=== PATIENT | male | born 1970 | race African-American/Black ===

== ENCOUNTER 2018-12-17 07:59 | Emergency (ER) | payer SELFPAY ==
[2018-12-17] MEDS ORDERED: RINGERS SOLUTION,LACTATED 1,000 ML IV ONE (08:30)
[2018-12-17] MEDS ORDERED: ONDANSETRON HCL INJ/PF 4 MG/2 ML SDV IV ONE (08:30)
[2018-12-17] MEDS ORDERED: PREDNISONE 20 MG TABLET PO ONE (08:55)
[2018-12-17] MEDS ORDERED: IPRATROPIUM/ALBUTEROL 0.5-2.5 MG/3 ML AMPUL NEB ONE ×2 (08:55→09:42)
--- NOTE | 2018-12-17 09:16 | RADIOLOGY REPORT (SQ) ---
EXAM DESCRIPTION: CHEST 2 VIEWS COMPLETED DATE/TIME: 12/17/2018 9:01 am REASON FOR STUDY: cough COMPARISON: None. TECHNIQUE: Frontal and lateral radiographic views of the chest acquired. NUMBER OF VIEWS: Two view. LIMITATIONS: None. FINDINGS: LUNGS AND PLEURA: No opacities, masses or pneumothorax. No pleural effusion. MEDIASTINUM AND HILAR STRUCTURES: No masses or contour abnormalities. HEART AND VASCULAR STRUCTURES: Heart normal size. No evidence for failure. BONES: No acute findings. HARDWARE: None in the chest. OTHER: No other significant finding. IMPRESSION: NO SIGNIFICANT RADIOGRAPHIC FINDING IN THE CHEST. TECHNICAL DOCUMENTATION: JOB ID: [id number] [employer]- All Rights Reserved Reading location - IP/workstation name: [email or web address]
[2018-12-17 10:10] LABS: HEMATOCRIT 47.1 % (37.9-51.0); HEMOGLOBIN 15.6 g/dL (13.5-17.0); MEAN CORPUSCULAR HEMOGLOBIN 29.2 pg (27.0-33.4); MEAN CORPUSCULAR HGB CONC 33.2 g/dL (32.0-36.0); MEAN CORPUSCULAR VOLUME 88 fl (80-97); PLATELET COUNT 271 10^3/uL (150-450); RED BLOOD COUNT 5.35 10^6/uL (4.35-5.55); RED CELL DISTRIBUTION WIDTH 14.2 % (11.5-14.0); WHITE BLOOD COUNT 8.5 10^3/uL (4.0-10.5)
[2018-12-17 10:18] LABS: ALANINE AMINOTRANSFERASE 13 U/L (21-72); ALBUMIN 4.9 g/dL (3.5-5.0); ALKALINE PHOSPHATASE 79 U/L (38-126); ANION GAP 13 (5-19); ASPARTATE AMINO TRANSFERASE 21 U/L (17-59); BILIRUBIN,DIRECT 0.2 mg/dL (0.0-0.4); BILIRUBIN,TOTAL 0.5 mg/dL (0.2-1.3); BLOOD UREA NITROGEN 22 mg/dL (7-20); CALCIUM 9.7 mg/dL (8.4-10.2); CARBON DIOXIDE 30 mmol/L (22-30); CHLORIDE 101 mmol/L (98-107); GLUCOSE 96 mg/dL (75-110); LIPASE 92.7 U/L (23-300); POTASSIUM 4.7 mmol/L (3.6-5.0); TOTAL PROTEIN 8.3 g/dL (6.3-8.2)
[2018-12-17] MEDS ORDERED: AMLODIPINE BESYLATE 2.5 MG TABLET PO ONE (10:34)
[2018-12-17 10:36] LABS: ABSOLUTE LYMPHOCYTES# (MANUAL) 0.2 10^3/uL (0.5-4.7); ABSOLUTE MONOCYTES # (MANUAL) 0.4 10^3/uL (0.1-1.4); ABSOLUTE NEUTROPHILS# (MANUAL) 7.7 10^3/uL (1.7-8.2); BASOPHILS % (MANUAL) 0 % (0-2); EOSINOPHILS % (MANUAL) 2 % (0-6); LYMPHOCYTES % (MANUAL) 2 % (13-45); MONOCYTES % (MANUAL) 5 % (3-13); SEGMENTED NEUTROPHILS % (MAN) 91 % (42-78); TOTAL CELLS COUNTED 100
[2018-12-17 10:37] LABS: ANISOCYTOSIS SLIGHT; PLATELET COMMENT ADEQUATE; TOXIC GRANULATION SLIGHT
[2018-12-17] MEDS ORDERED: ALBUTEROL SULFATE 0.083% NEB 2.5 MG/3 ML AMPUL NEB ONE (11:39)
--- NOTE | 2018-12-17 13:05 | ER Document Report ---
ED General - General Chief Complaint: Vomiting Stated Complaint: VOMITING,COUGH Time Seen by Provider: 12/17/18 08:29 Notes: Patient is a 39-year-old male presents to the emergency department for generalized vomiting x2 nonbloody nonbilious and diarrhea x1 nonbloody. Patient's denying fever. Patient states he ate a roast beef and a milkshake last night. States he is unsure if he has food poisoning. Patient states he also feels as though he had an extended cough for the last couple weeks. States he does have a history of asthma but has not had his albuterol inhaler due to him being uninsured.patient is denying that the vomiting episodes were posttussive in nature. Patient states initially he was having some abdominal pain but after he vomited states he felt better. Patient is currently denying any abdominal pain at this time. Past medical history: Asthma Medications: Currently none Allergies: Seafood TRAVEL OUTSIDE OF THE [place] IN LAST 30 DAYS: No - Related Data Allergies/Adverse Reactions: shellfish derived Adverse Reaction (Mild, Verified 12/17/18 08:31) VOMITING Past Medical History - General Information source: Patient - Social History Smoking Status: Former Smoker Frequency of alcohol use: None Drug Abuse: None Family History: Reviewed & Not Pertinent Patient has suicidal ideation: No Patient has homicidal ideation: No Pulmonary Medical History: Reports: Hx Asthma Renal/ Medical History: Denies: Hx Peritoneal Dialysis Review of Systems - Review of Systems Constitutional: denies: Fever EENT: No symptoms reported Cardiovascular: No symptoms reported Respiratory: See HPI Gastrointestinal: See HPI Genitourinary: No symptoms reported Male Genitourinary: No symptoms reported Musculoskeletal: No symptoms reported Skin: No symptoms reported Hematologic/Lymphatic: No symptoms reported Neurological/Psychological: No symptoms reported Physical Exam - Vital signs Vitals: Temp Pulse Resp BP Pulse Ox 99 F 96 16 169/117 H 96 12/17/18 08:03 12/17/18 08:03 12/17/18 08:03 12/17/18 08:03 12/17/18 08:03 - Notes Notes: GENERAL: Alert, interacts well. No acute distress. HEAD: Normocephalic, atraumatic. EYES: Pupils equal, round, and reactive to light. Extraocular movements intact. ENT: Oral mucosa moist, tongue midline. Nares patent, TM's intact, nonerythematous, nonbulging bilaterally. Pharynx within normal limits no palatal petechiae noted. NECK: Full range of motion. Supple. Trachea midline. LUNGS: Inspiratory and expiratory wheezes to auscultation bilaterally, all contreras. No respiratory distress. HEART: Regular rate and rhythm. No murmur ABDOMEN: Soft, non-tender. Non-distended. Bowel sounds present in all 4 quadrants. No McBurney's point tenderness, no Macedo sign noted. EXTREMITIES: Moves all 4 extremities spontaneously. No edema, normal radial and dorsalis pedis pulses bilaterally. No cyanosis. BACK: no cervical, thoracic, lumbar midline tenderness. No saddle anesthesia, normal distal neurovascular exam. NEUROLOGICAL: Alert and oriented x3. Normal speech. cranial nerves II through XII grossly intact. PSYCH: Normal affect, normal mood. SKIN: Warm, dry, normal turgor. No rashes or lesions noted. Course - Re-evaluation Re-evalutation: Patient's labs show a BUN of 22, creatinine 1.54, GFR 59. Patient was rehydrated with fluids in the emergency department. Patient's labs show no signs of leukocytosis, no signs of anemia, chest x-ray negative for pneumonia, pneumothorax, rib fracture. Patient has continued to be hypertensive in the emergency department with a diastolic in the 1 teens. Discussed this case my at tending Dr. Roman who suggest starting the patient on Norvasc. Discussed with the patient close return precautions and need to follow-up with a primary care provider, [facility] will be provided. Patient's lung sounds are now clear and equal in all contreras after DuoNeb and albuterol treatments. Discussed with patient use of albuterol inhaler, steroids, again close follow-up with [facility]. Patient stable for discharge. 12/17/18 13:05 Patient is able to p.o. after Zofran administration, no continued vomiting. Continues with abdominal pain. - Vital Signs Vital signs: Temp Pulse Resp BP Pulse Ox 99.0 F 106 H 22 H 162/108 H 97 12/17/18 08:06 12/17/18 11:55 12/17/18 11:55 12/17/18 11:55 12/17/18 11:55 - Laboratory Result Diagrams: 12/17/18 09:35 12/17/18 09:35 Laboratory results interpreted by me: 12/17/18 12/17/18 09:35 09:35 RDW 14.2 H Seg Neuts % (Manual) 91 H Lymphocytes % (Manual) 2 L Abs Lymphs (Manual) 0.2 L BUN 22 H Creatinine 1.54 H Est GFR ( Amer) 59 L Est GFR (Non-Af Amer) 48 L ALT 13 L Total Protein 8.3 H Discharge - Discharge Clinical Impression: Acute bronchospasm, Vomiting and diarrhea Hypertension Qualifiers: Hypertension type: unspecified Qualified Code(s): I10 - Essential (primary) hypertension Condition: Stable Disposition: HOME, SELF-CARE Instructions: Asthma ([facility]), Diarrhea, Nonspecific ([facility]), High Blood Pressure ([facility]), Vomiting ([facility]) Additional Instructions: As we discussed you have been seen and treated in the emergency department for your nausea, vomiting, diarrhea, asthma exacerbation. Please make sure you are taking nausea medication as prescribed. Please also make sure you take your albuterol inhaler every 4 hours as needed for respiratory distress. Please make sure you take your prednisone as prescribed as this will help your breathing. Please also make sure you take your initial high blood pressure medications I provided. It is very important that you follow-up at [facility] or [facility] for continued care of your hypertension and asthma. Phone numbers and addresses will be provided within this packet. Please return to the emergency room for any other concerns. Prescriptions: Albuterol Sulfate [Proair HFA Inhalation Aerosol 8.5 gm MDI] 1 puff IH Q4 PRN #1 mdi PRN Reason: Amlodipine Besylate [Norvasc 2.5 mg Tablet] 2.5 mg PO DAILY #30 tablet Ondansetron HCl [Zofran 8 mg Tablet] 8 mg PO Q6 #10 tablet Prednisone [Deltasone 20 mg Tablet] 3 tab PO DAILY 5 Days tablet Referrals: [facility] [Provider Group] - Follow up as needed [facility] [Provider Group] - Follow up as needed
[2018-12-17 13:32] VITALS: BP 165/106
== END 2018-12-17 13:31 | disposition home or self-care (01) ==
LOC: ER 07:59
DX: J98.01 Acute bronchospasm (principal); R11.10 Vomiting, unspecified; R19.7 Diarrhea, unspecified; I10 Essential (primary) hypertension; Z91.013 Allergy to seafood
CPT/HCPCS: 94640 ×2; 99283; 96374; 96375; 36415; 83690; 85025; 80053; 71046; J7512; J2405; J7120; J7620

== ENCOUNTER 2019-03-15 11:14 | Emergency (ER) | payer SELFPAY ==
[2019-03-15] MEDS ORDERED: DEXAMETHASONE SOD PHOS INJ 10 MG/1 ML VIAL IV ONE (11:35)
[2019-03-15] MEDS ORDERED: IPRATROPIUM/ALBUTEROL 0.5-2.5 MG/3 ML AMPUL NEB ONE (11:35)
--- NOTE | 2019-03-15 11:39 | ER Document Report ---
ED Medical Screen (RME) - General Chief Complaint: Breathing Difficulty Stated Complaint: BREATHING PROBLEMS Time Seen by Provider: 03/15/19 11:35 Mode of Arrival: Ambulatory Information source: Patient Notes: 48-year-old male presented to ED for complaint of shortness of breath difficulty breathing. He states his inhaler ran out. He states he has asthma and usually takes a purple inhaler and albuterol. He states the last time he used cocaine was on Tuesday he does smoke 2 cigarettes a day and he states the cocaine should be out of his body so he is not worried about that. He is alert oriented respirations regular and unlabored speaking in full sentences walks with even steady gait. He states he is very tired and very weak. He states he went to his doctor and they sent him over to the emergency room. Patient does have expiratory wheezes at this time. I have greeted and performed a rapid initial assessment of this patient. A comprehensive ED assessment and evaluation of the patient, analysis of test results and completion of medical decision making process will be conducted by an additional ED providers. Dictation of this chart was performed using voice recognition software; therefore, there may be some unintended grammatical errors. TRAVEL OUTSIDE OF THE [place] IN LAST 30 DAYS: No - Related Data Allergies/Adverse Reactions: shellfish derived Adverse Reaction (Mild, Verified 03/15/19 11:15) VOMITING Past Medical History - Social History Drug Abuse: Cocaine Pulmonary Medical History: Reports: Hx Asthma Renal/ Medical History: Denies: Hx Peritoneal Dialysis Physical Exam - Vital signs Vitals: Temp Pulse Resp BP Pulse Ox 98.1 F 92 19 157/104 H 96 03/15/19 11:19 03/15/19 11:19 03/15/19 11:19 03/15/19 11:19 03/15/19 11:19 Course - Vital Signs Vital signs: Temp Pulse Resp BP Pulse Ox 98.1 F 92 19 157/104 H 96 03/15/19 11:19 03/15/19 11:19 03/15/19 11:19 03/15/19 11:19 03/15/19 11:19
--- NOTE | 2019-03-15 12:02 | RADIOLOGY REPORT (SQ) ---
EXAM DESCRIPTION: CHEST 2 VIEWS COMPLETED DATE/TIME: 03/15/2019 11:54 am REASON FOR STUDY: cough short of breath COMPARISON: 12/19/2018 EXAM PARAMETERS: NUMBER OF VIEWS: two views TECHNIQUE: Digital Frontal and Lateral radiographic views of the chest acquired. RADIATION DOSE: NA LIMITATIONS: none FINDINGS: LUNGS AND PLEURA: No opacities, masses or pneumothorax. No pleural effusion. MEDIASTINUM AND HILAR STRUCTURES: No masses or contour abnormalities. HEART AND VASCULAR STRUCTURES: Heart normal size. No evidence for failure. BONES: No acute findings. HARDWARE: None in the chest. OTHER: No other significant finding. IMPRESSION: NO ACUTE RADIOGRAPHIC FINDING IN THE CHEST. TECHNICAL DOCUMENTATION: JOB ID: [id number] [employer]- All Rights Reserved Reading location - IP/workstation name: [email or web address]
[2019-03-15] MEDS: ALBUTEROL SULFATE 0.083% NEB 2.5 MG/3 ML AMPUL NEB SCH ×2 (12:10→12:47)
[2019-03-15 12:23] LABS: APPEARANCE,URINE CLEAR; BILIRUBIN,URINE NEGATIVE (NEGATIVE); COLOR,URINE STRAW; GLUCOSE, URINE NEGATIVE (NEGATIVE); KETONES,URINE NEGATIVE (NEGATIVE); LEUKOCYTE ESTERASE,URINE NEGATIVE (NEGATIVE); NITRITE,URINE NEGATIVE (NEGATIVE); PROTEIN,URINE NEGATIVE (NEGATIVE); URINE SPECIFIC GRAVITY 1.009; UROBILINOGEN,URINE NEGATIVE mg/dL (<2.0)
[2019-03-15 12:32] LABS: ABSOLUTE BASOPHILS # (AUTO) 0.1 10^3/uL (0.0-0.2); ABSOLUTE EOSINOPHILS # (AUTO) 0.8 10^3/uL (0.0-0.6); ABSOLUTE LYMPHOCYTES (AUTO) 1.7 10^3/uL (0.5-4.7); ABSOLUTE MONOCYTES (AUTO) 0.9 10^3/uL (0.1-1.4); ABSOLUTE NEUT (AUTO) 4.6 10^3/uL (1.7-8.2); BASOPHILS % (AUTO) 0.8 % (0-2); EOSINOPHILS % (AUTO) 9.6 % (0-6); HEMATOCRIT 41.2 % (37.9-51.0); HEMOGLOBIN 13.6 g/dL (13.5-17.0); LYMPHOCYTES % (AUTO) 21.6 % (13-45); MEAN CORPUSCULAR VOLUME 88 fl (80-97); MONOCYTES % (AUTO) 10.8 % (3-13); PLATELET COUNT 292 10^3/uL (150-450); RED BLOOD COUNT 4.68 10^6/uL (4.35-5.55); RED CELL DISTRIBUTION WIDTH 14.7 % (11.5-14.0); SEGMENTED NEUTROPHILS % (AUTO) 57.2 % (42-78); TOTAL CELLS COUNTED % (AUTO) 100 %
[2019-03-15 12:38] LABS: URINE AMPHETAMINES SCREEN NEGATIVE; URINE BARBITURATES SCREEN NEGATIVE; URINE BENZODIAZEPINES SCREEN NEGATIVE; URINE COCAINE SCREEN UNCONFIRMED POSITIVE; URINE MARIJUANA (THC) SCREEN NEGATIVE; URINE METHADONE SCREEN NEGATIVE; URINE PHENCYCLIDINE SCREEN NEGATIVE
[2019-03-15 12:44] LABS: ALBUMIN 4.3 g/dL (3.5-5.0); ALKALINE PHOSPHATASE 75 U/L (38-126); ASPARTATE AMINO TRANSFERASE 21 U/L (17-59); BLOOD UREA NITROGEN 14 mg/dL (7-20); CARBON DIOXIDE 33 mmol/L (22-30); CHLORIDE 102 mmol/L (98-107); CREATINE KINASE 256 U/L (55-170); TOTAL PROTEIN 7.5 g/dL (6.3-8.2)
[2019-03-15 12:45] LABS: ANION GAP 6 (5-19)
[2019-03-15 12:46] LABS: BILIRUBIN,DIRECT 0.3 mg/dL (0.0-0.4); BILIRUBIN,TOTAL 0.3 mg/dL (0.2-1.3); CALCIUM 9.2 mg/dL (8.4-10.2); GLUCOSE 81 mg/dL (75-110); POTASSIUM 4.2 mmol/L (3.6-5.0)
[2019-03-15 12:56] LABS: CREATINE KINASE MB 2.11 ng/mL (<4.55); TROPONIN I < 0.012 ng/mL
[2019-03-15] MEDS ORDERED: ALBUTEROL SULFATE HFA (90 MCG/PUFF) 8 GM MDI (1 MDI/ER DISP) IH SCH (14:30)
--- NOTE | 2019-03-15 14:32 | ER Document Report ---
ED General - General Chief Complaint: Breathing Difficulty Stated Complaint: BREATHING PROBLEMS Time Seen by Provider: 03/15/19 11:35 Mode of Arrival: Ambulatory TRAVEL OUTSIDE OF THE [place] IN LAST 30 DAYS: No - HPI Notes: Patient is a 48-year-old male who presents emergency department for evaluation of shortness of breath. He states is been ongoing for the last 3 days. He has had associated cough, productive of clear sputum. He is felt hot and cold. He states this all feels similar to his asthma exacerbations in the past. He was given an albuterol inhaler from [facility], he states he does not believe it is working. He is not sure if he is feeling anxiety as well. He has had no associated chest pain. Patient is also concerned about his blood pressur e. He states he ran out of his blood pressure medication 2 weeks ago. He is unsure as to what medication he takes. He states he gets that for free from [facility] as well. He states that they have medicine waiting for him after he is discharged here today. - Related Data Allergies/Adverse Reactions: shellfish derived Adverse Reaction (Mild, Verified 03/15/19 11:15) VOMITING Past Medical History - General Information source: Patient - Social History Smoking Status: Current Every Day Smoker Drug Abuse: Cocaine Family History: Reviewed & Not Pertinent, Hypertension Patient has suicidal ideation: No Patient has homicidal ideation: No Pulmonary Medical History: Reports: Hx Asthma Renal/ Medical History: Denies: Hx Peritoneal Dialysis Review of Systems - Review of Systems Constitutional: See HPI EENT: No symptoms reported Cardiovascular: No symptoms reported Respiratory: See HPI Gastrointestinal: No symptoms reported Genitourinary: No symptoms reported Musculoskeletal: No symptoms reported Skin: No symptoms reported Neurological/Psychological: No symptoms reported Physical Exam - Vital signs Vitals: Temp Pulse Resp BP Pulse Ox 98.1 F 92 19 157/104 H 96 03/15/19 11:19 03/15/19 11:19 03/15/19 11:19 03/15/19 11:19 03/15/19 11:19 - Notes Notes: This is a pleasant 48-year-old male, who appears his stated age in no acute distress. Vital signs reviewed, please refer to chart. Head is normocephalic, atraumatic. Pupils equal round, reactive to light. Neck is supple without meningismus. Heart is regular rate and rhythm. Lungs reveal scant expiratory wheezes throughout with mildly prolonged expiratory phase. Abdomen is soft, nontender, normoactive bowel sounds throughout. Extremities without cyanosis, clubbing. Posterior calves are nontender. Peripheral pulses are equal. Skin is warm and dry. Patient is awake, alert, neurological exam is nonfocal. Course - Re-evaluation Re-evalutation: 03/15/19 14:29 Patient presents emergency department for evaluation. He was evaluated initially through triage. Because of his cocaine use and shortness of breath, cardiac labs were obtained. Patient's labs were largely unremarkable. He does have a very mildly elevated creatinine. His drug screen was positive for cocaine. I counseled the patient extensively on cocaine use, particularly about the fact that this increases his blood pressure increases his risk of heart attack and stroke. He voiced understanding. He is also counseled to quit smoking in light of his asthma diagnosis. He voiced understanding to that as well and states he is currently trying to do so. His blood pressure is elevated here, but he has been off his antihypertensives for 2 weeks. He is going to scrap picker his medications after being discharged from the ER. He received some IV steroids here. He was given a breathing treatment he feels somewhat improved. I will go ahead and discharge him with an albuterol inhaler and a prescription for prednisone. He is to go scrap picker his medications, follow-up with primary care this week, and return to the ED with worsening. - Vital Signs Vital signs: Temp Pulse Resp BP Pulse Ox 98.1 F 92 19 157/104 H 96 03/15/19 11:19 03/15/19 11:19 03/15/19 11:19 03/15/19 11:19 03/15/19 11:19 - Laboratory Result Diagrams: 03/15/19 12:12 03/15/19 12:12 Laboratory results interpreted by me: 03/15/19 03/15/19 12:12 12:12 RDW 14.7 H Eos % (Auto) 9.6 H Absolute Eos (auto) 0.8 H Carbon Dioxide 33 H Creatinine 1.44 H Est GFR (MDRD) Non-Af 52 L Creatine Kinase 256 H - Diagnostic Test Radiology reviewed: Reports reviewed Radiology results interpreted by me: 03/15/19 14:30 Chest X-Ray 03/15/19 11:36 IMPRESSION: NO ACUTE RADIOGRAPHIC FINDING IN THE CHEST. - EKG Interpretation by Me Additional EKG results interpreted by me: 03/15/19 14:30 Sinus mechanism with a rate of 72 bpm. Borderline prolonged QT interval. Normal axis. Nonspecific ST changes, but no acute changes concerning for ischemia or infarction. Discharge - Discharge Clinical Impression: Cocaine abuse Asthma exacerbation Qualifiers: Asthma severity: moderate Asthma persistence: persistent Qualified Code(s): J45.41 - Moderate persistent asthma with (acute) exacerbation Hypertension Qualifiers: Hypertension type: unspecified Qualified Code(s): I10 - Essential (primary) hypertension Condition: Stable Disposition: HOME, SELF-CARE Instructions: Asthma ([facility]), High Blood Pressure, Requiring Treatment ([facility]) Additional Instructions: Take all the prednisone as directed, starting tomorrow. Please try to quit smoking. Abstain from drug use. Go directly to your primary care's office to obtain your blood pressure medication. Follow-up with them in the next week. If you develop chest pain, increased difficulty breathing, or any other new concerning symptoms, return immediately to the emergency department for reevaluation.
[2019-03-15 15:20] VITALS: BP 173/112
--- NOTE | 2019-03-15 20:38 | EKG REPORT ---
SEVERITY:- ABNORMAL ECG - SINUS RHYTHM PROBABLE LEFT VENTRICULAR HYPERTROPHY BORDERLINE PROLONGED QT INTERVAL : Confirmed by: Karen Barrientos MD 15-Mar-2019 20:37:18
== END 2019-03-15 15:22 | disposition home or self-care (01) ==
LOC: ER 11:14
DX: J45.41 Moderate persistent asthma with (acute) exacerbation (principal); F14.10 Cocaine abuse, uncomplicated; I10 Essential (primary) hypertension; R06.02 Shortness of breath; R05 Cough; F41.9 Anxiety disorder, unspecified; Z79.899 Other long term (current) drug therapy; F17.200 Nicotine dependence, unspecified, uncomplicated
CPT/HCPCS: 93005; 36415; 82553; 82550; 83690; 85025; 80053; 81001; 84484; 80307; 71046; 93010; J1100; J3490; J7620

== ENCOUNTER 2019-05-29 17:22 | Emergency (ER) | payer SELFPAY ==
--- NOTE | 2019-05-29 17:46 | ER Document Report ---
ED Medical Screen (RME) - General Chief Complaint: Cough Stated Complaint: COUGH,CONGESTION, HEADACHE Time Seen by Provider: 05/29/19 17:43 Mode of Arrival: Ambulatory Information source: Patient Notes: 48-year-old male presented to ED for complaint of coughing for 2 to 3 days. He states last night the cough got worse and now he has a headache. He has cough congestion runny nose he is afebrile. He is alert oriented respirations regular nonlabored speaking in full sentences. He states he does have asthma and ran out of his pump a week ago. He states he was smoking 5 cigarettes a day until 2 days ago when he quit. He states he rarely drinks he states he does use marijuana and cocaine. States he quit these 2 days ago also. I have greeted and performed a rapid initial assessment of this patient. A comprehensive ED assessment and evaluation of the patient, analysis of test results and completion of medical decision making process will be conducted by an additional ED providers. TRAVEL OUTSIDE OF THE [place] IN LAST 30 DAYS: No - Related Data Allergies/Adverse Reactions: shellfish derived Adverse Reaction (Mild, Verified 03/15/19 11:15) VOMITING Past Medical History Pulmonary Medical History: Reports: Hx Asthma Renal/ Medical History: Denies: Hx Peritoneal Dialysis Physical Exam - Vital signs Vitals: Temp Pulse Resp BP Pulse Ox 98.1 F 85 18 174/99 H 100 05/29/19 17:27 05/29/19 17:27 05/29/19 17:27 05/29/19 17:27 05/29/19 17:27 Course - Vital Signs Vital signs: Temp Pulse Resp BP Pulse Ox 98.1 F 85 18 174/99 H 100 05/29/19 17:27 05/29/19 17:27 05/29/19 17:27 05/29/19 17:27 05/29/19 17:27
[2019-05-29] MEDS ORDERED: PREDNISONE 20 MG TABLET PO ONE (17:47)
[2019-05-29] MEDS ORDERED: IPRATROPIUM/ALBUTEROL 0.5-2.5 MG/3 ML AMPUL NEB ONE ×2 (17:48→19:21)
[2019-05-29 18:25] LABS: ABSOLUTE BASOPHILS # (AUTO) 0.1 10^3/uL (0.0-0.2); ABSOLUTE EOSINOPHILS # (AUTO) 0.4 10^3/uL (0.0-0.6); ABSOLUTE LYMPHOCYTES (AUTO) 1.7 10^3/uL (0.5-4.7); BASOPHILS % (AUTO) 0.5 % (0-2); EOSINOPHILS % (AUTO) 3.7 % (0-6); HEMATOCRIT 42.8 % (37.9-51.0); HEMOGLOBIN 14.5 g/dL (13.5-17.0); LYMPHOCYTES % (AUTO) 15.2 % (13-45); MEAN CORPUSCULAR HEMOGLOBIN 29.7 pg (27.0-33.4); MEAN CORPUSCULAR HGB CONC 33.9 g/dL (32.0-36.0); MEAN CORPUSCULAR VOLUME 88 fl (80-97); MONOCYTES % (AUTO) 8.8 % (3-13); PLATELET COUNT 324 10^3/uL (150-450); RED BLOOD COUNT 4.89 10^6/uL (4.35-5.55); RED CELL DISTRIBUTION WIDTH 13.7 % (11.5-14.0); SEGMENTED NEUTROPHILS % (AUTO) 71.8 % (42-78); TOTAL CELLS COUNTED % (AUTO) 100 %; WHITE BLOOD COUNT 11.2 10^3/uL (4.0-10.5)
[2019-05-29 18:28] LABS: APPEARANCE,URINE CLEAR; BILIRUBIN,URINE NEGATIVE (NEGATIVE); COLOR,URINE STRAW; GLUCOSE, URINE NEGATIVE (NEGATIVE); KETONES,URINE NEGATIVE (NEGATIVE); PROTEIN,URINE NEGATIVE (NEGATIVE); URINE SPECIFIC GRAVITY 1.003; UROBILINOGEN,URINE NEGATIVE mg/dL (<2.0)
[2019-05-29 18:42] LABS: ALBUMIN 4.7 g/dL (3.5-5.0); ALKALINE PHOSPHATASE 96 U/L (38-126); ANION GAP 11 (5-19); ASPARTATE AMINO TRANSFERASE 24 U/L (17-59); BILIRUBIN,DIRECT 0.2 mg/dL (0.0-0.4); BILIRUBIN,TOTAL 0.3 mg/dL (0.2-1.3); BLOOD UREA NITROGEN 14 mg/dL (7-20); CALCIUM 9.6 mg/dL (8.4-10.2); CARBON DIOXIDE 30 mmol/L (22-30); CHLORIDE 100 mmol/L (98-107); GLUCOSE 136 mg/dL (75-110); POTASSIUM 3.9 mmol/L (3.6-5.0)
[2019-05-29 18:44] LABS: URINE AMPHETAMINES SCREEN NEGATIVE; URINE BARBITURATES SCREEN NEGATIVE; URINE BENZODIAZEPINES SCREEN NEGATIVE; URINE COCAINE SCREEN UNCONFIRMED POSITIVE; URINE MARIJUANA (THC) SCREEN NEGATIVE; URINE METHADONE SCREEN NEGATIVE; URINE PHENCYCLIDINE SCREEN NEGATIVE
[2019-05-29] MEDS ORDERED: ALBUTEROL SULFATE HFA (90 MCG/PUFF) 8 GM MDI (1 MDI/ER DISP) IH ONE ×2 (19:21→22:03)
--- NOTE | 2019-05-29 19:27 | ER Document Report ---
ED Respiratory Problem - General Chief Complaint: Cough Stated Complaint: COUGH,CONGESTION, HEADACHE Time Seen by Provider: 05/29/19 17:43 Mode of Arrival: Ambulatory Notes: 48-year-old male with hypertension, asthma, recent polysubstance abuse presents to the emergency department with chief complaint of cough and acute shortness of breath. Patient states that it started on Tuesday and he had a persistent cough that caused him to have a headache. Patient denies any fevers but said he "broke out into a sweat". Patient states that his chest is tight and he could hear himself wheezing. Patient denies any sinus pressure, current headache, earache, chest pain, nausea or vomiting, diaphoresis, abdominal pain, or any other concerning symptoms. Patient last used marijuana and cocaine 2 days ago. He states he is mostly compliant with his antihypertensives. TRAVEL OUTSIDE OF THE [place] IN LAST 30 DAYS: No - Related Data Allergies/Adverse Reactions: shellfish derived Adverse Reaction (Mild, Verified 05/29/19 18:25) VOMITING sea food Allergy (Uncoded 05/29/19 18:25) Home Medications: advair. albuterol. high blood pressure medications Past Medical History - General Information source: Patient - Social History Smoking Status: Former Smoker Frequency of alcohol use: None Drug Abuse: Cocaine, Marijuana Family History: Reviewed & Not Pertinent, Hypertension Patient has suicidal ideation: No Patient has homicidal ideation: No Pulmonary Medical History: Reports: Hx Asthma Renal/ Medical History: Denies: Hx Peritoneal Dialysis Review of Systems - Review of Systems Constitutional: See HPI EENT: No symptoms reported Cardiovascular: See HPI Respiratory: See HPI Gastrointestinal: No symptoms reported Genitourinary: See HPI Male Genitourinary: No symptoms reported Musculoskeletal: No symptoms reported Skin: No symptoms reported Hematologic/Lymphatic: No symptoms reported Neurological/Psychological: No symptoms reported Physical Exam - Vital signs Vitals: Temp Pulse Resp BP Pulse Ox 98.1 F 85 18 174/99 H 100 05/29/19 17:27 05/29/19 17:27 05/29/19 17:27 05/29/19 17:27 05/29/19 17:27 - Notes Notes: PHYSICAL EXAMINATION: Reviewed vital signs and charting by RN GENERAL: Alert, interacts well. No acute distress. HEAD: Normocephalic, atraumatic. EYES: Pupils equal and round. Extraocular movements intact. ENT: Oral mucosa moist, tongue midline. NECK: Full range of motion. Trachea midline. LUNGS: Inspiratory and expiratory wheezes heard in all contreras HEART: Regular rate and rhythm. No murmur ABDOMEN: soft, non-tender. No distention. Bowel sounds present EXTREMITIES: Moves all 4 extremities spontaneously. No edema, No cyanosis. PSYCH: Normal affect, normal mood. SKIN: Warm, dry, normal turgor. No rashes or lesions noted. Course - Re-evaluation Re-evalutation: 05/29/19 19:24 Well-appearing and nontoxic. Patient received 1 DuoNeb in triage. Patient still with diffuse wheezing contreras so I ordered an additional 2 DuoNeb's. Patient also received prednisone 60 mg p.o. once in triage. Initial troponin negative. Creatinine 1.6 consistent with previous visit so no evidence of an acute kidney injury. EKG showed a sinus rhythm with a rate of 79, no STEMI or ST segment depressions, QTC 482. I have very low suspicion for ACS even though patient is urine tox positive for cocaine and he is hypertensive at 160/100. Will reassess patient response to treatment after DuoNeb's. 05/29/19 19:26 05/29/19 21:29 Patient reassessed after DuoNeb's, significant interval improvement with mild end expiratory wheezing in the right lower lobe. Patient states he is feeling better. I am going to give him 1 more albuterol nebulizer prior to discharge. I am going to give him an albuterol inhaler with a spacer. Patient's blood pressure now 137/86 and all vital signs within normal limits. At this time patient is stable for discharge. - Vital Signs Vital signs: Temp Pulse Resp BP Pulse Ox 98.1 F 85 18 174/99 H 100 05/29/19 17:27 05/29/19 17:27 05/29/19 17:27 05/29/19 17:27 05/29/19 17:27 - Laboratory Result Diagrams: 05/29/19 17:53 05/29/19 17:53 Laboratory results interpreted by me: 05/29/19 05/29/19 17:53 17:53 WBC 11.2 H Creatinine 1.60 H Est GFR ( Amer) 56 L Est GFR (MDRD) Non-Af 46 L Glucose 136 H Discharge - Discharge Clinical Impression: Cough Asthma exacerbation Qualifiers: Asthma severity: mild Asthma persistence: intermittent Qualified Code(s): J45.21 - Mild intermittent asthma with (acute) exacerbation Condition: Good Disposition: HOME, SELF-CARE Additional Instructions: You were seen for an asthma exacerbation. Your symptoms improved with treatment here in the emergency department. However, it is very important that you return to the emergency department immediately if you began to have worsening difficulty breathing that does not respond to your normal home nebulizers. You are also being sent home on a five-day course of steroids that you should start taking tomorrow. Please also follow closely with your primary care physician. you should also return to emergency department if you develop fever greater than 101, persistent cough, persistent vomiting, pass out, or any other symptoms that are concerning to you. Forms: Return to Work
[2019-05-29] MEDS ORDERED: ALBUTEROL SULFATE 0.083% NEB 2.5 MG/3 ML AMPUL NEB ONE (21:29)
[2019-05-29] MEDS ORDERED: BENZONATATE 100 MG CAPSULE PO ONE (21:31)
[2019-05-29 22:08] VITALS: BP 142/83
--- NOTE | 2019-05-29 22:22 | RADIOLOGY REPORT (SQ) ---
XR CHEST 2 VIEWS EXAM DATE: 05/29/2019 5:47 PM [employer] HISTORY: Cough congestion wheezing. COMPARISON: 03/15/2019 FINDINGS: The heart size is within normal limits. No consolidation, pleural effusion, or pneumothorax is seen. No acute bony findings. IMPRESSION: No acute cardiopulmonary disease.
--- NOTE | 2019-05-30 23:38 | EKG REPORT ---
SEVERITY:- BORDERLINE ECG - SINUS RHYTHM BORDERLINE PROLONGED QT INTERVAL : Confirmed by: Martha Alexis 30-May-2019 23:37:09
== END 2019-05-29 22:23 | disposition home or self-care (01) ==
LOC: ER 17:22
DX: J45.21 Mild intermittent asthma with (acute) exacerbation (principal); R05 Cough; F19.10 Other psychoactive substance abuse, uncomplicated; R06.02 Shortness of breath; R51 Headache; I10 Essential (primary) hypertension; Z87.891 Personal history of nicotine dependence; Z79.899 Other long term (current) drug therapy
CPT/HCPCS: 93005; 36415; 85025; 80053; 81001; 84484; 80307; 71046; 93010; J7512; J3490; J7620; 94640; 99284

== ENCOUNTER 2019-05-31 02:30 | Observation (INO) | payer SELFPAY ==
[2019-05-31] MEDS ORDERED: IPRATROPIUM/ALBUTEROL 0.5-2.5 MG/3 ML AMPUL NEB ONE ×3 (03:11→03:29)
[2019-05-31] MEDS ORDERED: METHYLPREDNISOLONE INJ 125 MG/2 ML SDV IV ONE (03:29)
[2019-05-31] MEDS: MAGNESIUM SULFATE/D5W 1 GM/100 ML RTUPB IV SCH ×4 (03:38→09:58)
[2019-05-31 03:42] LABS: VENOUS BLOOD BASE EXCESS 2.3 mmol/L; VENOUS BLOOD HCO3 28.2 mmol/L (20-32); VENOUS BLOOD PCO2 48.7 mmHg (35-63); VENOUS BLOOD PH 7.38 (7.30-7.42)
--- NOTE | 2019-05-31 03:42 | ER Document Report ---
ED Respiratory Problem - General Chief Complaint: Shortness Of Breath Stated Complaint: SHORTNESS OF BREATH Time Seen by Provider: 05/31/19 03:25 Primary Care Provider: ASHER CRONIN MD [Primary Care Provider] - Follow up as needed Notes: Patient is a 48-year-old male that comes to the emergency department for chief c omplaint of difficulty breathing. He has a history of asthma and smoking, was seen almost 2 days ago and treated here, sent home with prednisone which he is taking. He states that he is okay at rest but if he gets up to move he can barely breathe, he states he is having frequent wheezing and coughing. No fevers reported or recorded. He denies chest pain outside of cough. He states he stopped smoking 3 days ago, he admits to recent cocaine but not within the past week. Denies history of [place] or hospitalizations for asthma. TRAVEL OUTSIDE OF THE [place] IN LAST 30 DAYS: No - Related Data Allergies/Adverse Reactions: shellfish derived Adverse Reaction (Mild, Verified 05/29/19 18:25) VOMITING sea food Allergy (Uncoded 05/29/19 18:25) Past Medical History - General Information source: Patient - Social History Smoking Status: Current Every Day Smoker Drug Abuse: Cocaine Lives with: Alone Family History: Reviewed & Not Pertinent, Hypertension - Past Medical History Cardiac Medical History: Reports: Hx Hypertension Pulmonary Medical History: Reports: Hx Asthma Renal/ Medical History: Denies: Hx Peritoneal Dialysis - Immunizations Hx Diphtheria, Pertussis, Tetanus Vaccination: Yes Review of Systems - Review of Systems Constitutional: See HPI EENT: No symptoms reported Cardiovascular: See HPI Respiratory: See HPI Gastrointestinal: No symptoms reported Genitourinary: No symptoms reported Male Genitourinary: No symptoms reported Musculoskeletal: No symptoms reported Skin: No symptoms reported Hematologic/Lymphatic: No symptoms reported Neurological/Psychological: No symptoms reported Physical Exam - Vital signs Vitals: Pulse Ox 100 05/31/19 02:42 - Notes Notes: GENERAL: Alert, interacts well. HEAD: Normocephalic, atraumatic. EYES: Pupils equal, round, and reactive to light. Extraocular movements intact. ENT: Oral mucosa moist, tongue midline. Oropharynx unremarkable. Airway patent. NECK: Full range of motion. Supple. Trachea midline. LUNGS: Tachypnea with mild respiratory distress, expiratory wheezes, no noted rales or rhonchi. HEART: Tachycardic, normal rhythm, no murmur ABDOMEN: Soft, non-tender. Non-distended. EXTREMITIES: Moves all 4 extremities spontaneously. No edema, normal radial and dorsalis pedis pulses bilaterally. No cyanosis. BACK: no cervical, thoracic, lumbar midline tenderness. No saddle anesthesia, normal distal neurovascular exam. Moves all extremities in full range of motion. NEUROLOGICAL: Alert and oriented x3. Normal speech. Cranial nerves II through XII grossly intact. PSYCH: Normal affect, normal mood. SKIN: Warm, dry, normal turgor. No rashes or lesions noted. Course - Re-evaluation Re-evalutation: Patient initially in mild respiratory distress with tachypnea, loud inspiratory and expiratory wheezes, tachycardia, borderline hypoxia. Given DuoNeb, magnesium, Solu-Medrol, IV fluids. He will be closely reevaluated. Patient improving after DuoNeb's but is still wheezing a lot. His tachypnea has resolved. He will continue to be monitored. Chest x-ray unremarkable, CBC with leukocytosis but this is nonspecific given his steroid use, chemistry unremarkable, troponin not elevated, BNP is not concerning. EKG nonspecific. Urine is positive for cocaine but patient already admitted to this. After completion of treatments patient is improved but he still has expiratory wheezes and with ambulation his heart rate goes up to 140s and he becomes very dyspneic. I did discuss with Dr. Dumont, he recommends admission for asthma exacerbation at this point. Patient is very agreeable with this because he admits he cannot breathe very well. He is almost asymptomatic at rest fortunately. I discussed with Dr. Huber, patient accepted for admission to telemetry observation. - Vital Signs Vital signs: Temp Pulse Resp BP Pulse Ox 25 H 147/96 H 100 05/31/19 05:01 05/31/19 05:01 05/31/19 02:42 - Laboratory Result Diagrams: 05/31/19 03:26 05/31/19 03:26 Laboratory results interpreted by me: 05/31/19 05/31/19 05/31/19 03:26 03:26 03:26 WBC 15.5 H RDW 14.3 H Lymph % (Auto) 5.4 L Absolute Neuts (auto) 13.8 H Seg Neutrophils % 89.0 H Creatinine 1.47 H Est GFR (MDRD) Non-Af 51 L Glucose 138 H NT-Pro-B Natriuret Pep 177 H Discharge - Discharge Clinical Impression: Shortness of breath, Tachycardia, Tobacco abuse Asthma exacerbation Qualifiers: Asthma severity: severe Asthma persistence: unspecified Qualified Code(s): J45.901 - Unspecified asthma with (acute) exacerbation Condition: Stable Disposition: ADMITTED OBSERVATION Admitting Provider: Dr. Stanford Unit Admitted: Telemetry Referrals: ASHER CRONIN MD [Primary Care Provider] - Follow up as needed
[2019-05-31 03:48] LABS: ABSOLUTE LYMPHOCYTES (AUTO) 0.8 10^3/uL (0.5-4.7); ABSOLUTE MONOCYTES (AUTO) 0.9 10^3/uL (0.1-1.4); ABSOLUTE NEUT (AUTO) 13.8 10^3/uL (1.7-8.2); BASOPHILS % (AUTO) 0.1 % (0-2); HEMATOCRIT 42.1 % (37.9-51.0); HEMOGLOBIN 14.1 g/dL (13.5-17.0); LYMPHOCYTES % (AUTO) 5.4 % (13-45); MEAN CORPUSCULAR HEMOGLOBIN 29.3 pg (27.0-33.4); MEAN CORPUSCULAR HGB CONC 33.5 g/dL (32.0-36.0); MEAN CORPUSCULAR VOLUME 88 fl (80-97); MONOCYTES % (AUTO) 5.5 % (3-13); PLATELET COUNT 335 10^3/uL (150-450); RED BLOOD COUNT 4.81 10^6/uL (4.35-5.55); RED CELL DISTRIBUTION WIDTH 14.3 % (11.5-14.0); TOTAL CELLS COUNTED % (AUTO) 100 %; WHITE BLOOD COUNT 15.5 10^3/uL (4.0-10.5)
[2019-05-31 03:57] LABS: ALBUMIN 4.7 g/dL (3.5-5.0); ALKALINE PHOSPHATASE 85 U/L (38-126); ANION GAP 11 (5-19); ASPARTATE AMINO TRANSFERASE 25 U/L (17-59); BILIRUBIN,DIRECT 0.1 mg/dL (0.0-0.4); BILIRUBIN,TOTAL 0.3 mg/dL (0.2-1.3); BLOOD UREA NITROGEN 16 mg/dL (7-20); CALCIUM 9.7 mg/dL (8.4-10.2); CARBON DIOXIDE 27 mmol/L (22-30); CHLORIDE 104 mmol/L (98-107); GLUCOSE 138 mg/dL (75-110); POTASSIUM 4.2 mmol/L (3.6-5.0); TOTAL PROTEIN 8.2 g/dL (6.3-8.2)
[2019-05-31 04:09] LABS: NT PRO BNP 177 pg/mL (<125)
[2019-05-31 04:10] LABS: TROPONIN I < 0.012 ng/mL
--- NOTE | 2019-05-31 04:26 | RADIOLOGY REPORT (SQ) ---
EXAM DESCRIPTION: XR CHEST 1 VIEW COMPLETED DATE/TME: 05/31/2019 02:42 CLINICAL HISTORY: 48 years, Male, SHORTNESS OF BREATH COMPARISON: 05/29/2019 NUMBER OF VIEWS: One TECHNIQUE: AP view of the chest LIMITATIONS: None. FINDINGS: Lungs are clear. The heart is normal in size. There is no pneumothorax or pleural effusion. The bones are unremarkable. IMPRESSION: No acute cardiopulmonary abnormality copyright 2010 [employer]- All Rights Reserved
[2019-05-31] MEDS ORDERED: NORMAL SALINE 1000 ML 1,000 ML IV ONE (04:37)
[2019-05-31 05:45] LABS: URINE AMPHETAMINES SCREEN NEGATIVE; URINE BARBITURATES SCREEN NEGATIVE; URINE BENZODIAZEPINES SCREEN NEGATIVE; URINE COCAINE SCREEN UNCONFIRMED POSITIVE; URINE MARIJUANA (THC) SCREEN NEGATIVE; URINE METHADONE SCREEN NEGATIVE; URINE PHENCYCLIDINE SCREEN NEGATIVE
[2019-05-31] MEDS ORDERED: LISINOPRIL 10 MG TABLET PO ONE (06:49)
[2019-05-31] MEDS ORDERED: AMLODIPINE BESYLATE 10 MG TABLET PO ONE (06:50)
[2019-05-31 06:51] LABS: APPEARANCE,URINE CLEAR; BILIRUBIN,URINE NEGATIVE (NEGATIVE); COLOR,URINE STRAW; GLUCOSE, URINE NEGATIVE (NEGATIVE); KETONES,URINE NEGATIVE (NEGATIVE); LEUKOCYTE ESTERASE,URINE NEGATIVE (NEGATIVE); NITRITE,URINE NEGATIVE (NEGATIVE); PROTEIN,URINE NEGATIVE (NEGATIVE); URINE SPECIFIC GRAVITY 1.009; UROBILINOGEN,URINE NEGATIVE mg/dL (<2.0)
--- NOTE | 2019-05-31 11:32 | PDOC H&P ---
History of Present Illness Admission Date/PCP: 05/31/19 08:13 ASHER CRONIN MD Patient complains of: Dyspnea and cough History of Present Illness: MARITZA LOPEZ is a 48 year old male with a history of asthma, hypertension and substance abuse, who presents to the hospital due to cough and worsening dyspnea. Patient symptoms started a few days ago. Patient did note initial onset of rhinorrhea and cough preceding the excessive dyspnea.Started experiencing dyspnea he presented to the ER and was referred home with prednisone and benzonatate. However there were no improvements in his symptoms he continued to experience severe dyspnea especially on exertion, cough and diaphoresis. Patient denies any chest pain orthopnea or PND. Patient denies any extremity swelling. Of note patient admitted to using cocaine and is an active smoker. He last used cocaine about 4 days ago. Past Medical History Cardiac Medical History: Reports: Hypertension Pulmonary Medical History: Reports: Asthma Past Surgical History Past Surgical History: Reports: None Social History Information Source: Patient Smoking Status: Current Every Day Smoker Frequency of Alcohol Use: Rare Hx Recreational Drug Use: Yes Drugs: Cocaine, Marijuana - Advance Directive Resuscitation Status: Full Code Family History Family History: Reviewed & Not Pertinent, Hypertension Parental Family History Reviewed: Yes Children Family History Reviewed: NA Sibling(s) Family History Reviewed.: NA Medication/Allergy Home Medications: Albuterol Sulfate [Proair HFA Inhalation Aerosol 8.5 gm MDI] 2 puff IH Q6HP PRN 05/31/19 Amlodipine Besylate [Norvasc 10 mg Tablet] 10 mg PO DAILY 05/31/19 Benzonatate [Tessalon Perles 100 mg Capsule] 100 mg PO Q8HP PRN 05/31/19 Fluticasone/Salmeterol [Advair 250-50 Diskus 14 Dose/Diskus] 1 inh BID 05/31/19 Lisinopril 20 mg PO DAILY 05/31/19 Prednisone [Deltasone 20 mg Tablet] 60 mg PO DAILY 05/31/19 Allergies/Adverse Reactions: shellfish derived Adverse Reaction (Mild, Verified 05/29/19 18:25) VOMITING sea food Allergy (Uncoded 05/29/19 18:25) Review of Systems Constitutional: PRESENT: other - Sweats. ABSENT: chills, fever(s), weight loss Eyes: ABSENT: visual disturbances Ears: ABSENT: hearing changes Nose, Mouth, and Throat: PRESENT: other - Denied hoarseness of voice. ABSENT: sore throat Cardiovascular: PRESENT: dyspnea on exertion. ABSENT: chest pain, edema, orthropnea, palpitations Respiratory: PRESENT: cough, dyspnea. ABSENT: hemoptysis Gastrointestinal: ABSENT: abdominal pain, diarrhea Integumentary: PRESENT: diaphoresis Neurological: ABSENT: frequent falls Psychiatric: ABSENT: hallucinations Endocrine: ABSENT: polydipsia, polyuria Allergic/Immunologic: PRESENT: other - Rhinorrhea Physical Exam Vital Signs: Temp Pulse Resp BP Pulse Ox 98.0 F 24 H 165/98 H 100 05/31/19 08:24 05/31/19 09:02 05/31/19 08:03 05/31/19 02:42 Intake & Output 05/30/19 05/31/19 06/01/19 06:59 06:59 06:59 Intake Total 1200 200 Balance 1200 200 General appearance: PRESENT: no acute distress, cooperative Eye exam: PRESENT: EOMI Mouth exam: PRESENT: moist Neck exam: PRESENT: other - No palpable neck mass. ABSENT: JVD, tenderness, tracheal deviation Respiratory exam: PRESENT: symmetrical, wheezes - Very significant amount of inspiratory and expiratory wheezes all throughout lung contreras bilaterally. ABSENT: accessory muscle use, chest wall tenderness, decreased breath sounds, rales, retraction Cardiovascular exam: PRESENT: RRR, +S1, +S2. ABSENT: tachycardia GI/Abdominal exam: PRESENT: normal bowel sounds, soft. ABSENT: distended, firm, tenderness Rectal exam: PRESENT: deferred Extremities exam: ABSENT: pedal edema Musculoskeletal exam: PRESENT: ambulatory Neurological exam: PRESENT: alert, awake, oriented to person, oriented to place, oriented to time, oriented to situation Results Laboratory Results: 05/31/19 03:26 05/31/19 03:26 05/31/19 05/31/19 05/31/19 03:26 03:26 03:26 WBC 15.5 H RBC 4.81 Hgb 14.1 Hct 42.1 MCV 88 MCH 29.3 MCHC 33.5 RDW 14.3 H Plt Count 335 Seg Neutrophils % 89.0 H VBG pH 7.38 VBG pCO2 48.7 VBG HCO3 28.2 VBG Base Excess 2.3 Sodium 141.6 Potassium 4.2 Chloride 104 Carbon Dioxide 27 Anion Gap 11 BUN 16 Creatinine 1.47 H Est GFR ( Amer) > 60 Glucose 138 H Calcium 9.7 Total Bilirubin 0.3 AST 25 Alkaline Phosphatase 85 Total Protein 8.2 Albumin 4.7 Urine Color Urine Appearance Urine pH Ur Specific [place] Urine Protein Urine Glucose (UA) Urine Ketones Urine Blood Urine Nitrite Ur Leukocyte Esterase Urine WBC (Auto) 05/31/19 05:01 WBC RBC Hgb Hct MCV MCH MCHC RDW Plt Count Seg Neutrophils % VBG pH VBG pCO2 VBG HCO3 VBG Base Excess Sodium Potassium Chloride Carbon Dioxide Anion Gap BUN Creatinine Est GFR ( Amer) Glucose Calcium Total Bilirubin AST Alkaline Phosphatase Total Protein Albumin Urine Color STRAW Urine Appearance CLEAR Urine pH 6.0 Ur Specific [place] 1.009 Urine Protein NEGATIVE Urine Glucose (UA) NEGATIVE Urine Ketones NEGATIVE Urine Blood NEGATIVE Urine Nitrite NEGATIVE Ur Leukocyte Esterase NEGATIVE Urine WBC (Auto) 0 05/31/19 03:26 Troponin I < 0.012 NT-Pro-B Natriuret Pep 177 H Impressions: Chest X-Ray 05/31/19 02:42 IMPRESSION: No acute cardiopulmonary abnormality copyright 2011 [employer]- All Rights Reserved Assessment and Plan - Diagnosis (1) Acute asthma exacerbation Qualifiers: Asthma severity: moderate Asthma persistence: persistent Qualified Code(s): J45.41 - Moderate persistent asthma with (acute) exacerbation Is this a current diagnosis for this admission?: Yes Plan: Chest x-ray is clear Standing DuoNeb's and steroids IV Will start on azithromycin with suspicion of possible underlying component of u ndiagnosed COPD given significant smoking history laba/ics Monitor peak flow (2) Acute bronchiolitis Is this a current diagnosis for this admission?: Yes Plan: Supportive treatment (3) Hypertension Is this a current diagnosis for this admission?: Yes Plan: Continue lisinopril and amlodipine (4) Stage 2 chronic kidney disease Is this a current diagnosis for this admission?: Yes Plan: We will monitor seems to be at baseline. - Time Time Spent with patient: 35 or more minutes Smoking Cessation Education: 3 to 10 minutes Medications reviewed and adjusted accordingly: Yes
[2019-05-31] MEDS: IPRATROPIUM/ALBUTEROL 0.5-2.5 MG/3 ML AMPUL NEB SCH ×3 (12:27→20:24)
[2019-05-31] MEDS: FLUTICASONE/VILANTEROL 200-25 MCG/DOSE IH SCH (13:57)
[2019-05-31] MEDS: HEPARIN SOD (PORCINE) 5,000 UNIT/ML 1 ML VIAL SUBCUT SCH ×2 (13:57→22:22)
[2019-05-31] MEDS: AZITHROMYCIN 250 MG TABLET PO SCH (13:57)
[2019-05-31] MEDS: METHYLPREDNISOLONE INJ 40 MG/1 ML SDV IV SCH (18:04)
--- NOTE | 2019-05-31 22:38 | EKG REPORT ---
SEVERITY:- BORDERLINE ECG - SINUS RHYTHM BORDERLINE PROLONGED QT INTERVAL : Confirmed by: Martha Alexis 31-May-2019 22:37:21
[2019-06-01] MEDS: IPRATROPIUM/ALBUTEROL 0.5-2.5 MG/3 ML AMPUL NEB SCH ×6 (00:13→20:26)
[2019-06-01] MEDS: METHYLPREDNISOLONE INJ 40 MG/1 ML SDV IV SCH ×2 (06:08→17:12)
[2019-06-01] MEDS: HEPARIN SOD (PORCINE) 5,000 UNIT/ML 1 ML VIAL SUBCUT SCH ×3 (06:08→21:02)
[2019-06-01 06:42] LABS: HEMATOCRIT 40.6 % (37.9-51.0); HEMOGLOBIN 13.5 g/dL (13.5-17.0); MEAN CORPUSCULAR HEMOGLOBIN 29.1 pg (27.0-33.4); MEAN CORPUSCULAR HGB CONC 33.2 g/dL (32.0-36.0); MEAN CORPUSCULAR VOLUME 88 fl (80-97); PLATELET COUNT 305 10^3/uL (150-450); RED BLOOD COUNT 4.64 10^6/uL (4.35-5.55); RED CELL DISTRIBUTION WIDTH 14.1 % (11.5-14.0); WHITE BLOOD COUNT 14.1 10^3/uL (4.0-10.5)
[2019-06-01 06:59] LABS: ANION GAP 9 (5-19); BLOOD UREA NITROGEN 17 mg/dL (7-20); CALCIUM 9.2 mg/dL (8.4-10.2); CARBON DIOXIDE 28 mmol/L (22-30); CHLORIDE 104 mmol/L (98-107); GLUCOSE 106 mg/dL (75-110); POTASSIUM 4.1 mmol/L (3.6-5.0)
[2019-06-01] MEDS ORDERED: LISINOPRIL 10 MG TABLET PO SCH (10:00)
[2019-06-01] MEDS: FLUTICASONE/VILANTEROL 200-25 MCG/DOSE IH SCH (10:10)
[2019-06-01] MEDS: AZITHROMYCIN 250 MG TABLET PO SCH (10:59)
[2019-06-01] MEDS: AMLODIPINE BESYLATE 10 MG TABLET PO SCH (11:08)
--- NOTE | 2019-06-01 11:46 | PDOC PROGRESS REPORT ---
Subjective Progress Note for:: 06/01/19 Subjective:: Patient states that he is breathing a lot better today. He was able to ambulate without much dyspnea. Still having some cough without much sputum production. Denies any fever or chills. Reason For Visit: ASTHMA EXACERBATION Physical Exam Vital Signs: Temp Pulse Resp BP Pulse Ox 98.1 F 71 15 150/92 H 92 06/01/19 07:34 06/01/19 08:00 06/01/19 08:00 06/01/19 07:34 06/01/19 08:00 Intake & Output 05/31/19 06/01/19 06/02/19 06:59 06:59 06:59 Intake Total 1200 1296 Balance 1200 1296 Weight 93.4 kg General appearance: PRESENT: no acute distress, cooperative Eye exam: PRESENT: EOMI Neck exam: ABSENT: JVD Respiratory exam: PRESENT: symmetrical, unlabored, wheezes - Mild external wheezes today much improved from yesterday. ABSENT: accessory muscle use, tachypnea Cardiovascular exam: PRESENT: RRR, +S1, +S2. ABSENT: systolic murmur, tachycardia GI/Abdominal exam: PRESENT: normal bowel sounds, soft. ABSENT: distended, firm, guarding, tenderness Extremities exam: ABSENT: pedal edema Neurological exam: PRESENT: alert, awake Results Laboratory Results: 06/01/19 05:45 06/01/19 05:45 06/01/19 06/01/19 05:45 05:45 WBC 14.1 H RBC 4.64 Hgb 13.5 Hct 40.6 MCV 88 MCH 29.1 MCHC 33.2 RDW 14.1 H Plt Count 305 Sodium 140.6 Potassium 4.1 Chloride 104 Carbon Dioxide 28 Anion Gap 9 BUN 17 Creatinine 1.40 H Est GFR ( Amer) > 60 Glucose 106 Calcium 9.2 05/31/19 03:26 Troponin I < 0.012 NT-Pro-B Natriuret Pep 177 H Impressions: Chest X-Ray 05/31/19 02:42 IMPRESSION: No acute cardiopulmonary abnormality copyright 2011 [employer]- All Rights Reserved Assessment and Plan - Diagnosis (1) Acute asthma exacerbation Qualifiers: Asthma severity: moderate Asthma persistence: persistent Qualified Code(s): J45.41 - Moderate persistent asthma with (acute) exacerbation Is this a current diagnosis for this admission?: Yes Plan: Likely exacerbated by cocaine use recently. I have counseled patient on how his substance abuse could worsen his lung condition thus the need to stop. Standing DuoNeb's and steroids IV azithromycin with suspicion of possible underlying component of undiagnosed COPD given significant smoking history laba/ics Patient is breathing a lot better today but would likely require 1 more day of standing frequent nebs and IV steroids giving that his last documented peak flow was 200 which is still significantly lower than his expected range (2) Acute bronchiolitis Is this a current diagnosis for this admission?: Yes Plan: Supportive treatment (3) Hypertension Is this a current diagnosis for this admission?: Yes Plan: Uncontrolled hypertension continue amlodipine I have increased lisinopril to 20 mg every 12 hours (4) Stage 2 chronic kidney disease Is this a current diagnosis for this admission?: Yes Plan: Monitor. Still at baseline (5) Leukocytosis Is this a current diagnosis for this admission?: Yes Plan: Secondary to steroids - Time Time Spent with patient: 15-24 minutes Medications reviewed and adjusted accordingly: Yes Anticipated discharge: Home Within: within 24 hours - Inpatient Certification Medical Necessity: Need for Nebulizer Therapy and Monitoring of Response
[2019-06-01] MEDS: MAG HYDROX/AL HYDROX/SIMETH SUSP 30 ML UDCUP PO PRN (18:10)
[2019-06-01] MEDS: ACETAMINOPHEN 325 MG TABLET PO PRN (18:10)
[2019-06-01] MEDS: LISINOPRIL 10 MG TABLET PO SCH (21:03)
[2019-06-01] MEDS: FAMOTIDINE 20 MG TABLET PO SCH (21:14)
[2019-06-01] MEDS: FLUTICASONE NASAL SPRAY 50 MCG/SPRY 120 SPRAY/16 GM NAREB SCH (22:10)
[2019-06-02] MEDS: ACETAMINOPHEN 325 MG TABLET PO PRN ×2 (01:41→07:54)
[2019-06-02] MEDS: IPRATROPIUM/ALBUTEROL 0.5-2.5 MG/3 ML AMPUL NEB SCH ×3 (02:21→14:24)
[2019-06-02] MEDS: METHYLPREDNISOLONE INJ 40 MG/1 ML SDV IV SCH (05:49)
[2019-06-02] MEDS: HEPARIN SOD (PORCINE) 5,000 UNIT/ML 1 ML VIAL SUBCUT SCH ×2 (05:49→13:15)
[2019-06-02] MEDS: MAG HYDROX/AL HYDROX/SIMETH SUSP 30 ML UDCUP PO PRN (05:50)
[2019-06-02] MEDS: LISINOPRIL 10 MG TABLET PO SCH (10:24)
[2019-06-02] MEDS: AMLODIPINE BESYLATE 10 MG TABLET PO SCH (10:24)
[2019-06-02] MEDS: AZITHROMYCIN 250 MG TABLET PO SCH (10:26)
[2019-06-02] MEDS: FAMOTIDINE 20 MG TABLET PO SCH (10:26)
[2019-06-02] MEDS: FLUTICASONE NASAL SPRAY 50 MCG/SPRY 120 SPRAY/16 GM NAREB SCH (10:26)
[2019-06-02] MEDS: FLUTICASONE/VILANTEROL 200-25 MCG/DOSE IH SCH (10:28)
--- NOTE | 2019-06-02 12:20 | PDOC DISCHARGE SUMMARY ---
Impression - Admit/DC Date/PCP Admission Date/Primary Care Provider: 05/31/19 08:13 ASHER CRONIN MD Discharge Date: 06/02/19 - Discharge Diagnosis (1) Acute asthma exacerbation Is this a current diagnosis for this admission?: Yes (2) Acute bronchiolitis Is this a current diagnosis for this admission?: Yes (3) Hypertension Is this a current diagnosis for this admission?: Yes (4) Stage 2 chronic kidney disease Is this a current diagnosis for this admission?: Yes (5) Leukocytosis Is this a current diagnosis for this admission?: Yes - Assessment Summary: Patient was admitted for acute exacerbation of asthma. Believe this exacerbation was secondary to acute bronchitis. Chest x-ray showed no infiltrates. Patient was started on treatments with frequent nebs and IV steroids. Patient's peak flow was measured to be 200 which was deemed to be significantly low. With further breathing treatments patient's peak flow remained in the 200s. However patient stated that his peak flows have always been low today he has never developed peak flows even at times when he is asthma was not flared up. However patient felt his breathing had become a lot better. Patient was tentatively wheezing but improved significantly from admission. Patient was not able to ambulate without dyspnea. Patient was discharged in stable condition to complete a few more days of steroid. I also contacted case repairer to set patient up with a nebulizer which is to be delivered to his home on Tuesday. I have sent prescription for DuoNeb solution to his pharmacy. - Additional Information Resuscitation Status: Full Code Discharge Diet: As Tolerated Discharge Activity: Activity As Tolerated Referrals: ASHER CRONIN MD [Primary Care Provider] - 06/07/19 4:00 pm (APPT WITH DR VIRGEN) Prescriptions: Fluticasone/Vilanterol [Breo 200-25 Mcg Ellipta 14 Dose/Dpi] 1 inh IH DAILY #1 inhaler Ipratropium/Albuterol Sulfate [Duoneb 3 ml Ampul] 3 ml NEB Q6HP PRN #100 ml PRN Reason: Azithromycin [Zithromax 250 mg Tablet] 250 mg PO DAILY 2 Days tablet Home Medications: Albuterol Sulfate [Proair HFA Inhalation Aerosol 8.5 gm MDI] 2 puff IH Q6HP PRN 05/31/19 Amlodipine Besylate [Norvasc 10 mg Tablet] 10 mg PO DAILY 05/31/19 Benzonatate [Tessalon Perles 100 mg Capsule] 100 mg PO Q8HP PRN 05/31/19 Lisinopril 20 mg PO DAILY 05/31/19 Prednisone [Deltasone 20 mg Tablet] 60 mg PO DAILY MDD 5 DAY SUPPLY 05/31/19 Azithromycin [Zithromax 250 mg Tablet] 250 mg PO DAILY 2 Days tablet 06/02/19 Fluticasone/Vilanterol [Breo 200-25 Mcg Ellipta 14 Dose/Dpi] 1 inh IH DAILY #1 inhaler 06/02/19 Ipratropium/Albuterol Sulfate [Duoneb 3 ml Ampul] 3 ml NEB Q6HP PRN #100 ml 06/02/19 History of Present Illiness History of Present Illness: MARITZA LOPEZ is a 48 year old male with a history of asthma, hypertension and substance abuse, who presents to the hospital due to cough and worsening dyspnea. Patient symptoms started a few days ago. Patient did note initial onset of rhinorrhea and cough preceding the excessive dyspnea.Started experiencing dyspnea he presented to the ER and was referred home with prednisone and benzonatate. However there were no improvements in his symptoms he continued to experience severe dyspnea especially on exertion, cough and diaphoresis. Patient denies any chest pain orthopnea or PND. Patient denies any extremity swelling. Of note patient admitted to using cocaine and is an active smoker. He last used cocaine about 4 days ago. Physical Exam Vital Signs: Temp Pulse Resp BP Pulse Ox 98.3 F 85 18 160/102 H 93 06/02/19 08:00 06/02/19 08:03 06/02/19 08:03 06/02/19 08:00 06/02/19 08:03 Intake & Output 06/01/19 06/02/19 06/03/19 06:59 06:59 06:59 Intake Total 1296 3226 Balance 1296 3226 Weight 93.4 kg 90 kg General appearance: PRESENT: no acute distress, cooperative Head exam: PRESENT: normocephalic Eye exam: PRESENT: EOMI Neck exam: ABSENT: JVD Respiratory exam: PRESENT: symmetrical, unlabored, wheezes - Historian expirat ory wheezes scattered throughout both improved from admission. ABSENT: clear to auscultation jud, crackles, rales, rhonchi, tachypnea Cardiovascular exam: PRESENT: RRR, +S1, +S2. ABSENT: diastolic murmur, tachycardia GI/Abdominal exam: PRESENT: normal bowel sounds, soft. ABSENT: rebound, rigid, tenderness Neurological exam: PRESENT: alert, awake Results Laboratory Results: WBC 14.1 10^3/uL (4.0-10.5) H 06/01/19 05:45 RBC 4.64 10^6/uL (4.35-5.55) 06/01/19 05:45 Hgb 13.5 g/dL (13.5-17.0) 06/01/19 05:45 Hct 40.6 % (37.9-51.0) 06/01/19 05:45 MCV 88 fl (80-97) 06/01/19 05:45 MCH 29.1 pg (27.0-33.4) 06/01/19 05:45 MCHC 33.2 g/dL (32.0-36.0) 06/01/19 05:45 RDW 14.1 % (11.5-14.0) H 06/01/19 05:45 Plt Count 305 10^3/uL (150-450) 06/01/19 05:45 Lymph % (Auto) 5.4 % (13-45) L 05/31/19 03:26 [place] % (Auto) 5.5 % (3-13) 05/31/19 03:26 Eos % (Auto) 0.0 % (0-6) 05/31/19 03:26 Baso % (Auto) 0.1 % (0-2) 05/31/19 03:26 Absolute Neuts (auto) 13.8 10^3/uL (1.7-8.2) H 05/31/19 03:26 Absolute Lymphs (auto) 0.8 10^3/uL (0.5-4.7) 05/31/19 03:26 Absolute Monos (auto) 0.9 10^3/uL (0.1-1.4) 05/31/19 03:26 Absolute Eos (auto) 0.0 10^3/uL (0.0-0.6) 05/31/19 03:26 Absolute Basos (auto) 0.0 10^3/uL (0.0-0.2) 05/31/19 03:26 Seg Neutrophils % 89.0 % (42-78) H 05/31/19 03:26 VBG pH 7.38 (7.30-7.42) 05/31/19 03:26 VBG pCO2 48.7 mmHg (35-63) 05/31/19 03:26 VBG HCO3 28.2 mmol/L (20-32) 05/31/19 03:26 VBG Base Excess 2.3 mmol/L 05/31/19 03:26 Sodium 140.6 mmol/L (137-145) 06/01/19 05:45 Potassium 4.1 mmol/L (3.6-5.0) 06/01/19 05:45 Chloride 104 mmol/L (98-107) 06/01/19 05:45 Carbon Dioxide 28 mmol/L (22-30) 06/01/19 05:45 Anion Gap 9 (5-19) 06/01/19 05:45 BUN 17 mg/dL (7-20) 06/01/19 05:45 Creatinine 1.40 mg/dL (0.52-1.25) H 06/01/19 05:45 Est GFR ( Amer) > 60 (>60) 06/01/19 05:45 Est GFR (MDRD) Non-Af 54 (>60) L 06/01/19 05:45 Glucose 106 mg/dL (75-110) 06/01/19 05:45 Calcium 9.2 mg/dL (8.4-10.2) 06/01/19 05:45 Total Bilirubin 0.3 mg/dL (0.2-1.3) 05/31/19 03:26 Direct Bilirubin 0.1 mg/dL (0.0-0.4) 05/31/19 03:26 Neonat Total Bilirubin Not Reportable 05/31/19 03:26 Neonat Direct Bilirubin Not Reportable 05/31/19 03:26 Neonat Indirect Bili Not Reportable 05/31/19 03:26 AST 25 U/L (17-59) 05/31/19 03:26 ALT 13 U/L (<50) 05/31/19 03:26 Alkaline Phosphatase 85 U/L (38-126) 05/31/19 03:26 Troponin I < 0.012 ng/mL 05/31/19 03:26 NT-Pro-B Natriuret Pep 177 pg/mL (<125) H 05/31/19 03:26 Total Protein 8.2 g/dL (6.3-8.2) 05/31/19 03:26 Albumin 4.7 g/dL (3.5-5.0) 05/31/19 03:26 Urine Color STRAW 05/31/19 05:01 Urine Appearance CLEAR 05/31/19 05:01 Urine pH 6.0 (5.0-9.0) 05/31/19 05:01 Ur Specific [place] 1.009 05/31/19 05:01 Urine Protein NEGATIVE mg/dL (NEGATIVE) 05/31/19 05:01 Urine Glucose (UA) NEGATIVE mg/dL (NEGATIVE) 05/31/19 05:01 Urine Ketones NEGATIVE mg/dL (NEGATIVE) 05/31/19 05:01 Urine Blood NEGATIVE (NEGATIVE) 05/31/19 05:01 Urine Nitrite NEGATIVE (NEGATIVE) 05/31/19 05:01 Urine Bilirubin NEGATIVE (NEGATIVE) 05/31/19 05:01 Urine Urobilinogen NEGATIVE mg/dL (<2.0) 05/31/19 05:01 Ur Leukocyte Esterase NEGATIVE (NEGATIVE) 05/31/19 05:01 Urine WBC (Auto) 0 /HPF 05/31/19 05:01 Urine Ascorbic Acid NEGATIVE (NEGATIVE) 05/31/19 05:01 Urine Opiates Screen NEGATIVE 05/31/19 05:01 Urine Methadone Screen NEGATIVE 05/31/19 05:01 Ur Barbiturates Screen NEGATIVE 05/31/19 05:01 Ur Phencyclidine Scrn NEGATIVE 05/31/19 05:01 Ur Amphetamines Screen NEGATIVE 05/31/19 05:01 U Benzodiazepines Scrn NEGATIVE 05/31/19 05:01 Urine Cocaine Screen UNCONFIRMED POSITIVE 05/31/19 05:01 U Marijuana (THC) Screen NEGATIVE 05/31/19 05:01 05/31/19 03:26 Troponin I < 0.012 NT-Pro-B Natriuret Pep 177 H Impressions: Chest X-Ray 05/31/19 02:42 IMPRESSION: No acute cardiopulmonary abnormality copyright 2011 [employer]- All Rights Reserved Stroke Is this a Stroke Patient?: No Acute Heart Failure - Is this a Heart Failure Patient?: No
[2019-06-02 12:37] VITALS: BP 160/101
== END 2019-06-02 14:00 | disposition home or self-care (01) ==
LOC: ER 02:30 → EH 08:13 → 4S 14:49
PROVIDERS: ADMIT Internal Medicine; ATTEND Internal Medicine
DX: J45.41 Moderate persistent asthma with (acute) exacerbation (principal); J21.9 Acute bronchiolitis, unspecified; I12.9 Hypertensive chronic kidney disease with stage 1 through stage 4 chronic kidney disease, or unspecified chronic kidney disease; N18.2 Chronic kidney disease, stage 2 (mild); D72.829 Elevated white blood cell count, unspecified; R61 Generalized hyperhidrosis; F14.10 Cocaine abuse, uncomplicated; R09.02 Hypoxemia; R00.0 Tachycardia, unspecified; Z79.899 Other long term (current) drug therapy; F17.200 Nicotine dependence, unspecified, uncomplicated; Z82.49 Family history of ischemic heart disease and other diseases of the circulatory system
CPT/HCPCS: 93005; 94640 ×5; 99285; 96372; 96361; 96375; 96365; 96366; 36415 ×2; 87040; 85025; 85027; 80048; 80053; 81001; 84484; 80307; 82803; 83880; 71045; 93010; G0378 ×4; J1644 ×3; J2920 ×3; J2930; J3475; J3490 ×4; J7030; J7620 ×3

== ENCOUNTER 2019-06-26 06:33 | Emergency (ER) | payer SELFPAY ==
[2019-06-26] MEDS ORDERED: IPRATROPIUM/ALBUTEROL 0.5-2.5 MG/3 ML AMPUL NEB ONE (07:02)
[2019-06-26] MEDS ORDERED: ACETAMINOPHEN 325 MG TABLET PO ONE (07:02)
[2019-06-26] MEDS ORDERED: PREDNISONE 20 MG TABLET PO ONE (07:03)
[2019-06-26] MEDS ORDERED: HYDRALAZINE HCL 10 MG TABLET PO ONE (07:52)
[2019-06-26 07:57] LABS: ABSOLUTE BASOPHILS # (AUTO) 0.1 10^3/uL (0.0-0.2); ABSOLUTE EOSINOPHILS # (AUTO) 0.3 10^3/uL (0.0-0.6); ABSOLUTE LYMPHOCYTES (AUTO) 1.3 10^3/uL (0.5-4.7); ABSOLUTE MONOCYTES (AUTO) 0.8 10^3/uL (0.1-1.4); ABSOLUTE NEUT (AUTO) 5.2 10^3/uL (1.7-8.2); BASOPHILS % (AUTO) 0.7 % (0-2); EOSINOPHILS % (AUTO) 3.9 % (0-6); HEMATOCRIT 40.3 % (37.9-51.0); HEMOGLOBIN 13.4 g/dL (13.5-17.0); LYMPHOCYTES % (AUTO) 17.1 % (13-45); MEAN CORPUSCULAR HEMOGLOBIN 29.6 pg (27.0-33.4); MEAN CORPUSCULAR HGB CONC 33.2 g/dL (32.0-36.0); MEAN CORPUSCULAR VOLUME 89 fl (80-97); MONOCYTES % (AUTO) 10.7 % (3-13); PLATELET COUNT 239 10^3/uL (150-450); RED BLOOD COUNT 4.51 10^6/uL (4.35-5.55); RED CELL DISTRIBUTION WIDTH 15.2 % (11.5-14.0); SEGMENTED NEUTROPHILS % (AUTO) 67.6 % (42-78); TOTAL CELLS COUNTED % (AUTO) 100 %; WHITE BLOOD COUNT 7.6 10^3/uL (4.0-10.5)
[2019-06-26 08:31] LABS: ALBUMIN 3.9 g/dL (3.5-5.0); ALKALINE PHOSPHATASE 70 U/L (38-126); ANION GAP 8 (5-19); ASPARTATE AMINO TRANSFERASE 24 U/L (17-59); BILIRUBIN,DIRECT 0.1 mg/dL (0.0-0.4); BILIRUBIN,TOTAL 0.3 mg/dL (0.2-1.3); BLOOD UREA NITROGEN 23 mg/dL (7-20); C-REACTIVE PROTEIN 26.9 mg/L (<10.0); CALCIUM 9.2 mg/dL (8.4-10.2); CARBON DIOXIDE 27 mmol/L (22-30); CHLORIDE 104 mmol/L (98-107); GLUCOSE 81 mg/dL (75-110); POTASSIUM 4.4 mmol/L (3.6-5.0); TOTAL PROTEIN 6.8 g/dL (6.3-8.2)
[2019-06-26 08:34] LABS: ERYTHROCYTE SEDIMENTATION RATE 19 mm/hr (0-15)
[2019-06-26] MEDS ORDERED: HYDRALAZINE HCL INJ/PF 20 MG/1 ML SDV IV ONE (09:45)
[2019-06-26 09:52] LABS: URINE AMPHETAMINES SCREEN NEGATIVE; URINE BARBITURATES SCREEN NEGATIVE; URINE BENZODIAZEPINES SCREEN NEGATIVE; URINE MARIJUANA (THC) SCREEN NEGATIVE; URINE METHADONE SCREEN NEGATIVE; URINE PHENCYCLIDINE SCREEN NEGATIVE
[2019-06-26 09:56] LABS: URINE COCAINE SCREEN UNCONFIRMED POSITIVE
--- NOTE | 2019-06-26 11:03 | RADIOLOGY REPORT (SQ) ---
EXAM DESCRIPTION: CT HEAD WITHOUT COMPLETED DATE/TIME: 06/26/2019 10:54 am REASON FOR STUDY: headache COMPARISON: 10/25/2006 TECHNIQUE: Axial images acquired through the brain without intravenous contrast. Images reviewed wi th bone, brain and subdural windows. Additional sagittal and coronal reconstructions were generated. Images stored on PACS. All CT scanners at this facility use dose modulation, iterative reconstruction, and/or weight based d osing when appropriate to reduce radiation dose to as low as reasonably achievable (ALARA). [facility]: Dose Right [facility]: CareDose [facility]: Dose Right [facility]: Teradose 4D [facility]: Business Combined RADIATION DOSE: CT Rad equipment meets quality standard of care and radiation dose reduction techniq ues were employed. CTDIvol: 53.2 mGy. DLP: 1070 mGy-cm. mGy. LIMITATIONS: None. FINDINGS: VENTRICLES: Normal size and contour. CEREBRUM: No masses. No hemorrhage. No midline shift. No evidence for acute infarction. Normal gra y/white matter differentiation. No areas of low density in the white matter. CEREBELLUM: No masses. No hemorrhage. No alteration of density. No evidence for acute infarction. EXTRAAXIAL SPACES: No fluid collections. No masses. ORBITS AND GLOBE: No intra- or extraconal masses. Normal contour of globe without masses. CALVARIUM: No fracture. PARANASAL SINUSES: No fluid or mucosal thickening. SOFT TISSUES: No mass or hematoma. OTHER: No other significant finding. IMPRESSION: NORMAL BRAIN CT WITHOUT CONTRAST. EVIDENCE OF ACUTE STROKE: NO. COMMENT: Quality ID # [id number]: Final reports with documentation of one or more dose reduction techniques (e.g., Automated exposure control, adjustment of the mA and/or kV according to patient size, use of iterative reconstruction technique) TECHNICAL DOCUMENTATION: JOB ID: [id number] [employer]- All Rights Reserved Reading location - IP/workstation name: [email or web address]
--- NOTE | 2019-06-26 11:18 | ER Document Report ---
ED General - General Chief Complaint: Shortness Of Breath Stated Complaint: HEAD SWELLING Time Seen by Provider: 06/26/19 07:01 Primary Care Provider: ASHER CRONIN MD [Primary Care Provider] - Follow up as needed Notes: 48 year old male arrives via EMS with cough/ wheeze and complaint that the sides of his head has become swollen. TRAVEL OUTSIDE OF THE [place] IN LAST 30 DAYS: No - Related Data Allergies/Adverse Reactions: shellfish derived Adverse Reaction (Mild, Verified 05/29/19 18:25) VOMITING sea food Allergy (Uncoded 05/29/19 18:25) Home Medications: albuterol Past Medical History - Social History Smoking Status: Current Every Day Smoker Family History: Reviewed & Not Pertinent, Hypertension Patient has suicidal ideation: No Patient has homicidal ideation: No - Past Medical History Cardiac Medical History: Reports: Hx Hypertension Pulmonary Medical History: Reports: Hx Asthma Renal/ Medical History: Denies: Hx Peritoneal Dialysis - Immunizations Hx Diphtheria, Pertussis, Tetanus Vaccination: Yes Physical Exam - Vital signs Vitals: Temp Pulse Resp BP Pulse Ox 97.5 F 101 H 20 159/109 H 97 06/26/19 06:40 06/26/19 06:40 06/26/19 06:40 06/26/19 06:40 06/26/19 06:40 Course - Vital Signs Vital signs: Temp Pulse Resp BP Pulse Ox 97.5 F 101 H 17 170/113 H 98 06/26/19 06:40 06/26/19 06:40 06/26/19 11:36 06/26/19 11:36 06/26/19 11:36 - Laboratory Result Diagrams: 06/26/19 07:47 06/26/19 07:47 Laboratory results interpreted by me: 06/26/19 06/26/19 07:47 07:47 Hgb 13.4 L RDW 15.2 H ESR 19 H BUN 23 H Creatinine 1.89 H Est GFR ( Amer) 46 L Est GFR (MDRD) Non-Af 38 L C-Reactive Protein 26.9 H Discharge - Discharge Clinical Impression: Cocaine abuse COPD (chronic obstructive pulmonary disease) Qualifiers: COPD type: unspecified COPD Qualified Code(s): J44.9 - Chronic obstructive pulmonary disease, unspecified Headache Qualifiers: Headache type: unspecified Headache chronicity pattern: acute headache Intractability: not intractable Qualified Code(s): R51 - Headache Condition: Good Disposition: HOME, SELF-CARE Instructions: Asthma ([facility]), Cocaine Abuse ([facility]), Family Physicians / Practices Additional Instructions: See your doctor or the referral doctor in follow up. Rest. Please return here for any problems or any concerns. Your blood pressure is elevated here. Be sure and have it rechecked. Stop cocaine and tobacco use. Prescriptions: Hydralazine HCl [Apresoline 25 mg Tablet] 25 mg PO BID #30 tablet Prednisone 10 mg PO 12 #1 tab.ds.pk Albuterol Sulfate [Proair HFA Inhalation Aerosol 8.5 gm MDI] 2 puff IH Q4H PRN #1 mdi PRN Reason: Forms: Elevated Blood Pressure Referrals: ASHER CRONIN MD [Primary Care Provider] - Follow up as needed
[2019-06-26 12:20] VITALS: BP 169/116
== END 2019-06-26 12:23 | disposition home or self-care (01) ==
LOC: ER 06:33
DX: J44.9 Chronic obstructive pulmonary disease, unspecified (principal); F14.10 Cocaine abuse, uncomplicated; R51 Headache; R06.02 Shortness of breath; R06.2 Wheezing; F17.200 Nicotine dependence, unspecified, uncomplicated; I10 Essential (primary) hypertension; Z91.013 Allergy to seafood
CPT/HCPCS: 94640; 99285; 96374; 36415; 85025; 85652; 86140; 80053; 80307; 70450; J3490; J0360; J7512; J7620